=== PATIENT | female | born 1995 | race Hispanic/Latino ===

== ENCOUNTER 2018-02-21 15:19 | Emergency (ER) | payer SELFPAY ==
[2018-02-21] MEDS ORDERED: predniSONE 20 MG TAB ONE (16:56)
[2018-02-21] MEDS ORDERED: diphenhydrAMINE 25 MG CAP ONE (16:56)
== END 2018-02-21 17:00 | disposition home or self-care (01) ==
LOC: ERS 15:19
DX: T78.40XA Allergy, unspecified, initial encounter (principal)
CPT/HCPCS: 99283; J7506

== ENCOUNTER 2020-12-30 21:47 | Emergency (ER) | payer OTHER, SELFPAY | END 2020-12-30 23:43 | disposition home or self-care (01) | LOC: ERS 21:47 | DX: S62.625A Displaced fracture of middle phalanx of left ring finger, initial encounter for closed fracture (principal); W51.XXXA Accidental striking against or bumped into by another person, initial encounter ==

== ENCOUNTER 2021-11-25 13:09 | Emergency (ER) | payer SELFPAY ==
[2021-11-25 14:19] LABS: Bacteria/HPF 2+ HPF (None Seen); Bilirubin Negative (Negative); Blood, Urine Negative (Negative); Clarity Clear (Clear); Glucose, Urine (Dipstick) Normal (Negative); Ketone, Urine Negative (Negative); Leukocyte 25 Leu/uL (Negative); Nitrite 2+ (Negative); Protein, Urine (Dipstick) Negative (Neg-Trace); RBC/HPF 0-3 HPF (0-3); Squamous Epithelial 0-3 HPF (0-3); Urobilinogen Normal mg/dL (Less than 2)
[2021-11-25 14:22] LABS: Pregnancy Test - Urine (BHCG) Negative (Negative)
[2021-11-25 14:23] LABS: Pregu Control Background? CLEAR/WHITE (CLR/WHITE); Pregu Control Bar Appear? YES (CONTROL BAR)
== END 2021-11-25 14:55 | disposition home or self-care (01) ==
LOC: ERS 13:09
DX: N39.0 Urinary tract infection, site not specified (principal)
CPT/HCPCS: 81003; 81015; 81025; 87077; 87086; 87186; 99283

== ENCOUNTER 2024-04-07 16:32 | Emergency (ER) | payer SELFPAY ==
[2024-04-07] MEDS ORDERED: Ibuprofen 800 MG TAB ONE (16:50)
== END 2024-04-07 18:33 | disposition home or self-care (01) ==
LOC: ERS 16:32
DX: H60.92 Unspecified otitis externa, left ear (principal)
CPT/HCPCS: 99282